=== PATIENT | female | born 1995 ===

== ENCOUNTER 2023-03-16 10:20 | Inpatient (IN) | payer MEDICAID ==
[2023-03-16] MEDS ORDERED: Lidocaine 1% 50 ML MDV INJECT PRN (11:19)
[2023-03-16] MEDS ORDERED: Carboprost Tromethamine 250 MCG/1 ML Amp IM PRN (11:19)
[2023-03-16] MEDS ORDERED: Misoprostol 200 MCG Tab PO PRN (11:19)
[2023-03-16] MEDS ORDERED: Sodium Chloride 0.9% 20 ML SDV IV PRN (11:19)
[2023-03-16] MEDS ORDERED: Methylergonovine 0.2 MG/1 ML Amp IM PRN (11:19)
[2023-03-16] MEDS ORDERED: Tranexamic Acid 1,000 MG in Sodium Chloride 0.9% 100 ML IV PRN (11:19)
[2023-03-16] MEDS ORDERED: Sodium Chloride 0.9% 10 ML Syringe FLUSH PRN (11:19)
[2023-03-16] MEDS ORDERED: Sodium Chloride 0.9% 2.5 ML Syringe FLUSH PRN (11:19)
[2023-03-16] MEDS ORDERED: Water For Irrigation,Sterile 1,000 ML Container IRR PRN (11:19)
[2023-03-16] MEDS ORDERED: Oxytocin/0.9 % Sodium Chloride 30 UNIT/500 ML BAG IV SCH ×2 (11:30→14:15)
[2023-03-16] MEDS: Lactated Ringers 1,000 ML IV SCH ×2 (12:08→22:28)
[2023-03-16] MEDS ORDERED: Phenylephrine HCl 0.5 MG/5 ML AMP IVPUSH PRN (12:47)
[2023-03-16] MEDS ORDERED: ePHEDrine 50 MG/ML SDV IVPUSH PRN ×2 (12:47)
[2023-03-16] MEDS ORDERED: Ropivacaine HCl/PF 400 MG in Premix Bag 1 BAG EPIDUR SCH (13:00)
[2023-03-16] MEDS ORDERED: Misoprostol 25 MCG (1/4 of 100 MCG) Tab PO PRN (14:12)
[2023-03-16] MEDS ORDERED: Terbutaline 1 MG/ML SDV SUBCUT PRN (14:12)
[2023-03-16] MEDS ORDERED: Misoprostol 25 MCG (1/4 of 100 MCG) Tab VAG PRN ×2 (14:12)
[2023-03-16] MEDS: Butorphanol 1 MG/ML SDV IVPUSH PRN ×2 (16:18→18:42)
[2023-03-16] MEDS ORDERED: Dexmedetomidine 200 MCG/2 ML SDV ONE (21:00)
[2023-03-16] MEDS ORDERED: Ondansetron 4 MG/2 ML SDV IVPUSH PRN (22:05)
[2023-03-16] MEDS ORDERED: Acetaminophen 500 MG Tab PO ONE (22:06)
[2023-03-17] MEDS ORDERED: Ibuprofen 800 MG Tab PO PRN (01:46)
[2023-03-17] MEDS ORDERED: Acetaminophen 500 MG Tab PO PRN (01:46)
[2023-03-17] MEDS ORDERED: Lanolin 100% Cream 7 GM Tube TOP PRN (01:46)
[2023-03-17] MEDS ORDERED: Ibuprofen 400 MG Tab PO PRN (01:46)
[2023-03-17] MEDS ORDERED: Benzocaine/Menthol 20%-0.5% Spray 78 GM Cannister TOP PRN (01:46)
[2023-03-17] MEDS ORDERED: Bisacodyl 10 MG Supp RECTAL PRN (01:46)
[2023-03-17] MEDS: Witch Hazel Medicated Pads 40/Jar TOP PRN (04:42)
[2023-03-17] MEDS: Acetaminophen 500 MG Tab PO PRN ×2 (09:17→15:47)
[2023-03-17] MEDS: Docusate Sodium 100 MG Cap PO PRN (11:21)
[2023-03-18] MEDS: Docusate Sodium 100 MG Cap PO PRN (00:55)
[2023-03-18] MEDS: Witch Hazel Medicated Pads 40/Jar TOP PRN (07:57)
== END 2023-03-18 12:38 | disposition home or self-care (01) | DRG 807 ==
LOC: MW.OBCHECK 10:20 → MW.OB 10:23 → MW.OBCHECK 11:19 → MW.OB 11:20 → OBSVTOIN 03-17 01:15 → MW.OB 03-17 06:20
PROVIDERS: ADMIT Obstetrics & Gynecology; ATTEND Obstetrics & Gynecology
PROC: 10E0XZZ Delivery of Products of Conception, External Approach (ICD-10-PCS; principal; 2023-03-17)
PROC: 0KQM0ZZ Repair Perineum Muscle, Open Approach (ICD-10-PCS; 2023-03-17)
PROC: 3E033VJ Introduction of Other Hormone into Peripheral Vein, Percutaneous Approach (ICD-10-PCS; 2023-03-17)
PROC: 3E0P7VZ Introduction of Hormone into Female Reproductive, Via Natural or Artificial Opening (ICD-10-PCS; 2023-03-17)
PROC: 3E0R3BZ Introduction of Anesthetic Agent into Spinal Canal, Percutaneous Approach (ICD-10-PCS; 2023-03-17)
PROC: 00HU33Z Insertion of Infusion Device into Spinal Canal, Percutaneous Approach (ICD-10-PCS; 2023-03-17)
DX: O42.02 Full-term premature rupture of membranes, onset of labor within 24 hours of rupture (principal); Z37.0 Single live birth; O99.824 Streptococcus B carrier state complicating childbirth; O48.0 Post-term pregnancy; O70.1 Second degree perineal laceration during delivery; Z3A.40 40 weeks gestation of pregnancy; Z88.0 Allergy status to penicillin
CPT/HCPCS: 01967; 36415; 51702; 59025; 59409; 84112; 85014; 85018; 85027; 86592; 86850; 86900; 86901; A9270-GY; J0595; J2370; J2405; J2590; J3370; J3490; J7040; J7120